=== PATIENT | female | born 1940 | race Caucasian/White ===

== ENCOUNTER 2020-07-13 15:25 | Emergency (ER) | payer OTHER ==
--- OUTSIDE RECORDS SUMMARY | 2020-07-13 15:27 | XMS REPORT | Continuity of Care Document ---
:1940 Author Organization [facility] t Address [address] [place] [address] [place] [id number] Care Team Providers Name Role Phone Unavailable Unavailable Unavailable Payers Payer Name Policy Type Policy Number Effective Date Expiration Date S ource Problems This patient has no known problems. Allergies, Adverse Reactions, Alerts This patient has no known allergies or adverse reactions. Medications This patient has no known medications. Procedures This patient has no known procedures. Results This patient has no known results.
--- NOTE | 2020-07-13 19:42 | RAD REPORT ---
EXAM DESCRIPTION: RAD - Knee Left 3 View - 07/13/2020 6:53 pm CLINICAL HISTORY: Left knee pain FINDINGS: No fracture or dislocation is seen. Soft tissue swelling. Mild osteoarthritis medial compartment. Bones are osteoporotic
--- NOTE | 2020-07-13 19:49 | RAD REPORT ---
EX[facility] DES[facility]13[facility]2020 7:11 pm CLINICAL HISTORY: left leg pain COMPARISON: None. FINDINGS: Left common femoral, superficial femoral, popliteal and posterior tibial veins are compre ssible and demonstrate augmentation. Doppler demonstrates good flow. 4 centimeter Peck's cyst IMPRESSION: No evidence of deep venous thrombosis involving the left lower extremity.
--- NOTE | 2020-07-13 19:51 | EDPHYS ---
Physician Documentation [facility] Name: Jovana Oswald Age: 80 yrs Sex: Female : 1940 Arrival Date: 07/13/2020 Time: 15:31 Bed Waiting Private MD: Yonathan Harris C ED Physician Pk Hendricks HPI: 07/13 19:45 This 80 yrs old Female presents to ER via Wheelchair with complaints of Knee tw4 Pain. 19:45 The patient presents with decreased range of motion, pain. The complaints affect the tw4 left knee. Context: The problem was sustained at home, resulted from an unknown cause, the patient can partially bear weight. Onset: The symptoms/episode began/occurred today. Modifying factors: The symptoms are alleviated by remaining still, the symptoms are aggravated by movement, weight bearing, bending knee. Associated signs and symptoms: The patient has no apparent associated signs or symptoms. Treatment prior to arrival includes: no previous treatment. Severity of symptoms: At their worst the symptoms were moderate, in the emergency department the symptoms are unchanged. The patient has not experienced similar symptoms in the past. Historical: - Allergies: 15:41 PENICILLINS; tw2 15:41 Codeine; tw2 - Home Meds: 15:41 abacavir 300 mg oral tab 1 tab every 12 hours [Active]; levothyroxine 112 mcg tab 1 tab tw2 once daily [Active]; Norvasc 10 mg Oral tab 1 tab once daily [Active]; - PMHx: 15:42 Hypertension; Hypothyroidism; tw2 - PSHx: 15:41 Appendectomy; Tonsillectomy; tw2 - Immunization history:: Adult Immunizations Client reports receiving the 1st dose of the Covid vaccine, July 10, 2020. - Social history:: Smoking status: . ROS: 19:45 Constitutional: Negative for fever, chills, and weight loss, Eyes: Negative for injury, tw4 pain, redness, and discharge, Cardiovascular: Negative for chest pain, palpitations, and edema, Respiratory: Negative for shortness of breath, cough, wheezing, and pleuritic chest pain, Abdomen/GI: Negative for abdominal pain, nausea, vomiting, diarrhea, and constipation, Back: Negative for injury and pain, Skin: Negative for injury, rash, and discoloration, Neuro: Negative for headache, weakness, numbness, tingling, and seizure. 19:45 MS/extremity: Positive for injury or acute deformity, decreased range of motion, tenderness. Exam: 19:45 Constitutional: This is a well developed, well nourished patient who is awake, alert, tw4 and in no acute distress. Head/Face: Normocephalic, atraumatic. Chest/axilla: Normal chest wall appearance and motion. Nontender with no deformity. No lesions are appreciated. Cardiovascular: Regular rate and rhythm with a normal S1 and S2. No gallops, murmurs, or rubs. Normal PMI, no JVD. No pulse deficits. Respiratory: Lungs have equal breath sounds bilaterally, clear to auscultation and percussion. No rales, rhonchi or wheezes noted. No increased work of breathing, no retractions or nasal flaring. 19:45 Musculoskeletal/extremity: Extremities: noted in the left knee: decreased ROM, swelling. Vital Signs: 15:34 BP 165 / 69; Pulse 73; Resp 17; Temp 97.9(O); Pulse Ox 97% on R/A; Weight 77.56 kg (R); tw2 Height 5 ft. 6 in. (167.64 cm); Pain 8/10; 19:44 BP 189 / 81; Pulse 81; Resp 16 S; Pulse Ox 98% on R/A; ca1 15:34 Body Mass Index 27.60 (77.56 kg, 167.64 cm) tw2 MDM: 19:45 Differential diagnosis: closed fracture. Data reviewed: vital signs, nurses notes. Data tw4 interpreted: Pulse oximetry: Interpretation: normal. Counseling: I had a detailed discussion with the patient and/or guardian regarding: the historical points, exam findings, and any diagnostic results supporting the discharge/admit diagnosis, radiology results. Special discussion: I discussed with the patient/guardian in detail that at this point there is no indication for admission to the hospital. It is understood, however, that if the symptoms persist or worsen the patient needs to return immediately for re-evaluation. 19:50 Patient medically screened. tw4 07/13 18:04 Order name: XRAY Knee LEFT 3 view rn 07/13 18:04 Order name: Extremity [facility] US rn 07/13 19:43 Order name: RAD EDMS 07/13 19:49 Order name: US EDPR Administered Medications: No medications were administered Disposition: 07/13/20 19:50 Discharged to Home. Impression: Dislocation and sprain of joints and ligaments of knee. - Condition is Stable. - Discharge Instructions: Knee Sprain. - Medication Reconciliation Form, Thank You Letter, Antibiotic Education, Prescription Opioid Use, Work release form form. - Follow up: Private Physician; When: Upon discharge from the Emergency Department; Reason: Recheck today's complaints, Continuance of care, Re-evaluation by your physician. Follow up: Petar Hernandez MD; When: Upon discharge from the Emergency Department; Reason: Recheck today's complaints, Continuance of care, Re-evaluation by your physician. Follow up: Craig Puente MD; When: Upon discharge from the Emergency Department; Reason: Recheck today's complaints, Continuance of care, Re-evaluation by your physician. - Problem is new. - Symptoms have improved. Signatures: Dispatcher [employer] EDPR Joana Hassan RN RN tw2 Pk Hendricks MD MD tw4 Juliana Smith RN RN ca1 Corrections: (The following items were deleted from the chart) 19:50 19:50 07/13/2020 19:50 Discharged to Home. Impression: Dislocation and sprain of joints tw4 and ligaments of knee. Condition is Stable. Forms are Medication Reconciliation Form, Thank You Letter, Antibiotic Education, Prescription Opioid Use. Follow up: Private Physician; When: Upon discharge from the Emergency Department; Reason: Recheck today's complaints, Continuance of care, Re-evaluation by your physician. Problem is new. Symptoms have improved. tw4 19:58 19:50 07/13/2020 19:50 Discharged to Home. Impression: Dislocation and sprain of joints ca1 and ligaments of knee. Condition is Stable. Discharge Instructions: Knee Sprain. Forms are Medication Reconciliation Form, Thank You Letter, Antibiotic Education, Prescription Opioid Use. Follow up: Private Physician; When: Upon discharge from the Emergency Department; Reason: Recheck today's complaints, Continuance of care, Re-evaluation by your physician. Follow up: Petar Hernandez; When: Upon discharge from the Emergency Department; Reason: Recheck today's complaints, Continuance of care, Re-evaluation by your physician. Follow up: Craig Puente; When: Upon discharge from the Emergency Department; Reason: Recheck today's complaints, Continuance of care, Re-evaluation by your physician. Problem is new. Symptoms have improved. tw4
--- NOTE | 2020-07-13 19:51 | ER ---
Nurse's Notes [facility] Name: Jovana Oswald Age: 80 yrs Sex: Female : 1940 Arrival Date: 07/13/2020 Time: 15:31 Bed Waiting Private MD: Yonathan Harris C Diagnosis: Dislocation and sprain of joints and ligaments of knee Presentation: 07/13 15:34 Chief complaint: Patient states: something is wrong with my LEFT knee, it started tw2 Saturday, i went to work this morning and then when i came home to rest a bit and i couldn't hardly walk on it, it is swollen and painful, a couple years i had a bakers cyst behind my right knee and this lázaro feels like it. Coronavirus screen: At this time, the client does not indicate any symptoms associated with coronavirus-19. Ebola Screen: Patient denies travel to an Ebola-affected area in the 21 days before illness onset. Initial Sepsis Screen: Does the patient meet any 2 criteria? No. Patient's initial sepsis screen is negative. Does the patient have a suspected source of infection? No. Patient's initial sepsis screen is negative. Risk Assessment: Do you want to hurt yourself or someone else? Patient reports no desire to harm self or others. Note i took aleve about an hour ago. Onset of symptoms was July 13, 2020. 15:34 Method Of Arrival: Wheelchair tw2 15:34 Acuity: WILLIE 3 tw2 Triage Assessment: 15:41 General: Appears in no apparent distress. Behavior is calm, cooperative, appropriate tw2 for age. Pain: Complains of pain in left knee. Musculoskeletal: Swelling present in left knee. Historical: - Allergies: 15:41 PENICILLINS; tw2 15:41 Codeine; tw2 - Home Meds: 15:41 abacavir 300 mg oral tab 1 tab every 12 hours [Active]; levothyroxine 112 mcg tab 1 tab tw2 once daily [Active]; Norvasc 10 mg Oral tab 1 tab once daily [Active]; - PMHx: 15:42 Hypertension; Hypothyroidism; tw2 - PSHx: 15:41 Appendectomy; Tonsillectomy; tw2 - Immunization history:: Adult Immunizations Client reports receiving the 1st dose of the Covid vaccine, July 10, 2020. - Social history:: Smoking status: . Screenin:41 Abuse screen: Denies threats or abuse. Denies injuries from another. Nutritional ca1 screening: No deficits noted. Tuberculosis screening: No symptoms or risk factors identified. Fall Risk None identified. Assessment: 19:41 General: Appears in no apparent distress. comfortable, Behavior is calm, cooperative, ca1 appropriate for age. Pain: Complains of pain in left knee Pain currently is 2 out of 10 on a pain scale. Pain began today. Neuro: Level of Consciousness is awake, alert, obeys commands, Oriented to person, place, time, situation. Derm: Skin is intact, is healthy with good turgor, Skin is pink, warm \\T\\ dry. Musculoskeletal: Circulation, motion, and sensation intact. Capillary refill < 3 seconds, Swelling present in left knee. 19:57 Reassessment: Pt states, "I got BP meds at home for tonight that I have not taken yet, ca1 I will take them when I get home. And my BP is high from sitting here for hours". Vital Signs: 15:34 BP 165 / 69; Pulse 73; Resp 17; Temp 97.9(O); Pulse Ox 97% on R/A; Weight 77.56 kg (R); tw2 Height 5 ft. 6 in. (167.64 cm); Pain 8/10; 19:44 BP 189 / 81; Pulse 81; Resp 16 S; Pulse Ox 98% on R/A; ca1 15:34 Body Mass Index 27.60 (77.56 kg, 167.64 cm) tw2 ED Course: 15:31 Patient arrived in ED. mr 15:31 Yonathan Harris MD is Private Physician. mr 15:40 Triage completed. tw2 15:42 Arm band placed on. tw2 19:23 Pk Hendricks MD is Attending Physician. tw4 19:41 Juliana Smith, RAKEL is Primary Nurse. ca1 19:41 Patient has correct armband on for positive identification. ca1 19:41 No provider procedures requiring assistance completed. Patient did not have IV access ca1 during this emergency room visit. 19:50 Petar Hernandez MD is Referral Physician. tw4 19:50 Craig Puente MD is Referral Physician. tw4 Administered Medications: No medications were administered Outcome: 19:50 Discharge ordered by . tw4 19:58 Discharged to home ambulatory, with family. ca1 19:58 Condition: stable 19:58 Discharge instructions given to patient, Instructed on discharge instructions, follow up and referral plans. Demonstrated understanding of instructions, follow-up care. 19:58 Patient left the ED. ca1 Signatures: Jovana Hoffman mr Joana Hassan, RN RN tw2 Pk Hendricks MD MD tw4 Juliana Smith RN RN ca1
[2020-07-13 23:10] VITALS: TEMP 97.9
[2020-07-13 23:11] VITALS: BP 189/81; O2SAT 98
== END 2020-07-13 19:58 | disposition home or self-care (01) ==
LOC: ER 15:25
DX: S83.92XA Sprain of unspecified site of left knee, initial encounter (principal); I10 Essential (primary) hypertension; E03.9 Hypothyroidism, unspecified; X58.XXXA Exposure to other specified factors, initial encounter
CPT/HCPCS: 93971; 99281

== ENCOUNTER 2022-02-19 11:00 | Day surgery (SDC) | payer OTHER ==
[2022-02-14 14:10] LABS: Absolute Lymphocytes (CBC) 2.1 K/uL (0.7-4.9); Lymphocytes % 27.6 % (15.3-44.8); MCV 91.6 fL (80-100); MPV 7.3 fL (7.6-11.3); RBC Red Blood Cell Count 4.04 M/uL (3.86-4.86)
[2022-02-14 14:17] LABS: SARS-CoV-2 Antigen Rapid Res Negative (Negative)
[2022-02-14 14:24] LABS: Protime INR 1.03
[2022-02-14 14:27] LABS: Potassium 3.9 mmol/L (3.5-5.1)
--- NOTE | 2022-02-14 15:07 | RAD REPORT ---
EXAM DESCRIPTION: Luba Solis (2 Views)02/14/2022 2:46 pm CLINICAL HISTORY: Preop for cardiac catheterization COMPARISON: None FINDINGS: The lungs appear clear of acute infiltrate. The heart is probably borderline enlarged IMPRESSION: No acute abnormalities displayed
--- NOTE | 2022-02-15 07:37 | EKG ---
Test Date: 2022-02-14 Test Time: 13:43:47 Tonsorial Artist: JOSE MEASUREMENT RESULTS: Intervals: Rate: 87 RI: 176 QRSD: 104 QT: 358 QTc: 430 [place]: P: 73 RI: 176 QRS: -50 T: 70 INTERPRETIVE STATEMENTS: Normal sinus rhythm Left anterior fascicular block Abnormal ECG Compared to ECG 08/14/2013 09:07:11 Left anterior fascicular block now present Electronically Signed On 02-15-22 07:35:17 CDT by Oli Tanner
[2022-02-19] MEDS ORDERED: FENTANYL CITR 100 MCG/2 ML ONE (11:02)
[2022-02-19] MEDS ORDERED: HEPA 1000U/500MLS 2,000 UNIT/1,000 ML BAG IV ONE (11:02)
[2022-02-19] MEDS ORDERED: HEPARIN 5000 UNIT/ML 1 ML VIAL ONE (11:03)
[2022-02-19] MEDS ORDERED: VERAPAMIL HCL 10 MG/4 ML VIAL IV ONE (11:03)
[2022-02-19] MEDS ORDERED: MIDAZOLAM HCL 2 MG/2 ML INJ ONE ×2 (11:03→12:22)
[2022-02-19] MEDS ORDERED: NITROGLYCERIN/D5W 25 MG/250 ML BTL IV ONE (11:04)
[2022-02-19] MEDS ORDERED: ATROPINE SULF 1 MG/10 ML SYR IV ONE (11:04)
[2022-02-19] MEDS ORDERED: NITROGLYCERIN 100 MCG/ML SYR (for cath lab use only) IV ONE (11:04)
[2022-02-19] MEDS ORDERED: HEPARIN 10,000 UNIT/10 ML VIAL IV ONE (11:04)
[2022-02-19] MEDS ORDERED: NA CHLORIDE 0.9% 500 ML ONE (11:06)
[2022-02-19] MEDS ORDERED: LIDOCAINE 1% MPF 30 ML VIAL ONE (11:15)
[2022-02-19] MEDS ORDERED: REGADENOSON 0.4 MG/5 ML SYR IV ONE (13:06)
--- NOTE | 2022-02-19 16:18 | OP ---
Date of Procedure: 02/19/2022 Surgeon: LARS GRIMES Procedures Performed: 1.Selective coronary angiogram. 2.FFR of the moderate mid LAD stenosis with a value of 0.83, which is insignificant. Indications: Severe aortic valve stenosis before valve replacement procedure. Access: Right radial artery 6-[place] closed with TR band. Complications: None. Bleeding: Less than 10 mL. Anesthesia: Total sedation time was 35 minutes. Used fentanyl and Versed. Description Of Procedure: After risks, benefits, and alternatives were explained, the patient to agr eed to the procedure and signed informed consent. The patient was brought into the cardiac catheteri zation laboratory, prepped and draped in the usual sterile fashion. Then, we accessed right radial a rtery using micropuncture kit and placed a 6-[place] Slender sheath and took 5-[place] 4.0 cathet er into the aortic root, engaged left main and right coronary artery, took standard views and then ga ve systemic heparin to assure ACT level above 250 and took a Comet pressure wire into the aortic root and pressures were equalized and then advanced the wire into the LAD past the area of stenosis and L exiscan was given, and FFR was recorded to be at 0.83, then pullback showed no drift and then final a ngiogram was satisfactory. I then removed the wire and the catheter and the sheath and place TR band good hemostasis. Findings: 1.Left main; large and normal. 2.LAD; moderate-size vessel with normal proximal segment. Diagonal branch has 40% stenosis and it i s diffuse, and this is diagonal branch 1 and then mid LAD has diffuse 50% and then became 50% to 60% at the band area and FFR value of 0.83, which is negative. The rest of the LAD appears to be normal, but becomes very small, tapers down to small vessel. 3.Left circumflex; moderate-sized vessel and normal. 4.RCA; very large and dominant with significant wall calcifications only about diffuse 20% stenosis. Conclusion: 1.Moderate mid LAD stenosis that was insignificant by FFR of 0.83. 2.Mild coronary artery disease elsewhere. Plan: To proceed with TAVR as planned. /EDIN Voice ID: [id number] Report ID: [id number]
[2022-02-19 16:40] VITALS: BP 140/57
[2022-02-19 17:35] VITALS: O2SAT 97
== END 2022-02-19 16:50 | disposition home or self-care (01) ==
LOC: CCL 11:00
PROVIDERS: ATTEND Internal Medicine
DX: I35.0 Nonrheumatic aortic (valve) stenosis (principal); I25.10 Atherosclerotic heart disease of native coronary artery without angina pectoris; I45.2 Bifascicular block; I10 Essential (primary) hypertension; R09.89 Other specified symptoms and signs involving the circulatory and respiratory systems; Z79.899 Other long term (current) drug therapy; Z88.0 Allergy status to penicillin; Z88.5 Allergy status to narcotic agent; Z20.822 Contact with and (suspected) exposure to COVID-19
CPT/HCPCS: 93005; 85025; 80048; 36415; 85610; 85347; 85730; 71046; 93454; 76937; 93571; 87811; C1893; Q9966; J1644 ×2; J2250 ×2; J3010; J2785; J7040; C1769